=== PATIENT | female | born 1980 | race Caucasian/White ===

== ENCOUNTER 2018-01-13 10:50 | Emergency (ER) | payer OTHER, SELFPAY ==
[~2018-01-13] VITALS: Ht 177.8 cm; Wt 96.5 kg
[2018-01-13 12:25] LABS: BASOPHILS # (AUTO) 0.03 x10^3/uL (0-0.1); BASOPHILS % (AUTO) 0 % (0-1); EOSINOPHILS # (AUTO) 0.06 x10^3/uL (0-0.4); EOSINOPHILS % (AUTO) 1 % (1-7); LYMPHOCYTES # (AUTO) 2.03 x10^3/uL (1-3.4); LYMPHOCYTES % (AUTO) 30 % (22-44); MD NO; MEAN CORPUSCULAR HEMOGLOBIN 29.4 pg (27.0-34.8); MEAN CORPUSCULAR VOLUME 86.6 fL (80-100); MEAN PLATELET VOLUME 8.8 fL (7.4-10.4); MONOCYTES # (AUTO) 0.41 x10^3/uL (0.2-0.8); MONOCYTES % (AUTO) 6 % (2-9); NEUTROPHILS # (AUTO) 4.19 x10^3/uL (1.8-6.8); NEUTROPHILS % (AUTO) 62 % (42-75); PLATELET COUNT 337 x10^3/uL (130-400); RED BLOOD COUNT 4.84 x10^6/uL (3.82-5.3); RED CELL DISTRIBUTION WIDTH 13.7 % (9.6-15.2)
[2018-01-13 12:35] LABS: ALBUMIN 3.7 g/dL (3.4-5.0); ANION GAP 7 mmol/L (5-15); CALCIUM 8.2 mg/dL (8.5-10.1); CHLORIDE 108 mmol/L (98-107)
[2018-01-13 12:41] LABS: ALANINE AMINOTRANSFERASE 11 U/L (12-78); ALKALINE PHOSPHATASE 41 U/L (45-117); BILIRUBIN,TOTAL 0.4 mg/dL (0.2-1.0); CREATININE 0.86 mg/dL (0.55-1.02)
[2018-01-13 14:01] VITALS: BP 146/98
== END 2018-01-13 14:03 | disposition home or self-care (01) ==
LOC: ED 13:12
DX: N92.1 Excessive and frequent menstruation with irregular cycle (principal); N92.0 Excessive and frequent menstruation with regular cycle
CPT/HCPCS: 36415; 76830; 80053; 84702; 85025; 99285

== ENCOUNTER → 2018-02-28 | Outpatient (CLI) | payer OTHER ==
[~2018-02-28] MED LIST: DIPH-526 PO; OMEP-110 PO
[2018-02-28 12:00] LABS: BASOPHILS # (AUTO) 0.03 x10^3/uL (0-0.1); BASOPHILS % (AUTO) 0 % (0-1); EOSINOPHILS # (AUTO) 0.03 x10^3/uL (0-0.4); EOSINOPHILS % (AUTO) 1 % (1-7); LYMPHOCYTES % (AUTO) 32 % (22-44); MD NO; MEAN CORPUSCULAR HEMOGLOBIN 28.9 pg (27.0-34.8); MEAN CORPUSCULAR HGB CONC 33.4 g/dL (32.4-35.8); MEAN CORPUSCULAR VOLUME 86.4 fL (80-100); MEAN PLATELET VOLUME 8.6 fL (7.4-10.4); MONOCYTES # (AUTO) 0.37 x10^3/uL (0.2-0.8); MONOCYTES % (AUTO) 6 % (2-9); NEUTROPHILS # (AUTO) 3.77 x10^3/uL (1.8-6.8); NEUTROPHILS % (AUTO) 61 % (42-75); PLATELET COUNT 339 x10^3/uL (130-400); RED BLOOD COUNT 5.14 x10^6/uL (3.82-5.3); RED CELL DISTRIBUTION WIDTH 13.9 % (9.6-15.2)
[2018-02-28 12:19] LABS: HCG UR SG 1.011 (1.003-1.030); MICROSCOPIC AUTO
[2018-02-28 12:27] LABS: CULTURE INDICATED? NO
== END ==
LOC: STAR 10:57
PROVIDERS: ATTEND Obstetrics & Gynecology
DX: Z01.818 Encounter for other preprocedural examination (principal)
CPT/HCPCS: 36415; 81001; 81025; 85025

== ENCOUNTER 2018-03-10 06:21 | Day surgery (SDC) | payer OTHER ==
[~2018-03-10] VITALS: Ht 177.8 cm; Wt 96.4 kg
[2018-03-10] MEDS ORDERED: LACTATED RINGERS 1,000 ML IV SCH (06:59)
[2018-03-10] MEDS ORDERED: ACETAMINOPHEN 500 MG TABLET PO ONE (07:00)
[2018-03-10] MEDS ORDERED: GABAPENTIN 300 MG CAPSULE PO ONE (07:00)
[2018-03-10] MEDS ORDERED: OxyconTIN ER 20 MG TAB.ER PO ONE (07:00)
[2018-03-10 07:01] VITALS: BP 145/87
[2018-03-10] MEDS ORDERED: LIDOCAINE-MPF 1%, 2ML ONE (07:12)
[2018-03-10] MEDS ORDERED: FAMOTIDINE 20 MG TABLET ONE (07:19)
[2018-03-10] MEDS ORDERED: FAMOTIDINE 20 MG TABLET PO ONE (07:30)
[2018-03-10] MEDS ORDERED: FENTANYL PF 250 MCG/5ML ONE (07:57)
[2018-03-10] MEDS ORDERED: MIDAZOLAM 1 MG/ML, 2ML ONE (07:57)
[2018-03-10 08:01] LABS: HCG UR SG 1.011 (1.003-1.030)
[2018-03-10] MEDS ORDERED: EPINEPHRINE 1 MG/ML, 1ML ONE (08:20)
[2018-03-10] MEDS ORDERED: BUPIVACAINE 0.25% ONE (08:20)
[2018-03-10] MEDS ORDERED: SUCCINYLCHOLINE 20 MG/ML, 10ML ONE (08:34)
[2018-03-10] MEDS ORDERED: LIDOCAINE 4%, 4 ML SYR/CANN TP ONE (08:34)
[2018-03-10] MEDS ORDERED: ROCURONIUM 10 MG/ML,10ML ONE (08:34)
[2018-03-10] MEDS ORDERED: PROPOFOL 10 MG/ML, 20ML ONE (08:34)
[2018-03-10] MEDS ORDERED: CEFAZOLIN 1,000 MG ONE (08:34)
[2018-03-10] MEDS ORDERED: DEXAMETHASONE 4 MG/ML, 1ML ONE (08:34)
[2018-03-10] MEDS ORDERED: ONDANSETRON 2MG/ML, 2ML ONE (08:34)
[2018-03-10] MEDS ORDERED: MEPERIDINE/PF 25MG/0.5ML IVPush PRN (09:00)
[2018-03-10] MEDS ORDERED: morphine SULFATE 10 MG/ML, 1ML IV PRN (09:00)
[2018-03-10] MEDS ORDERED: ONDANSETRON 2MG/ML, 2ML IVPush PRN (09:00)
[2018-03-10] MEDS ORDERED: OXYcodone 5 MG/5 ML ORAL.SOL UDC PO PRN (09:00)
[2018-03-10] MEDS ORDERED: PROMETHAZINE 25 MG/ML, 1ML IV PRN (09:00)
[2018-03-10] MEDS ORDERED: FENTANYL PF 100 MCG/2ML IV PRN (09:00)
[2018-03-10] MEDS ORDERED: FENTANYL PF 100 MCG/2ML ONE (10:18)
== END 2018-03-10 13:40 ==
LOC: OUT 06:21
PROVIDERS: ATTEND Obstetrics & Gynecology
DX: Z30.2 Encounter for sterilization (principal); N83.8 Other noninflammatory disorders of ovary, fallopian tube and broad ligament
CPT/HCPCS: 58670; 81025; 88302; J0171; J0330; J0690; J1100; J2250; J2405; J2704; J3010; J3490; J7120

== ENCOUNTER 2018-10-07 09:27 | Emergency (ER) | payer OTHER ==
[~2018-10-07] VITALS: Ht 177.8 cm; Wt 95.0 kg
[2018-10-07] MEDS ORDERED: ALPR0.5T10 SL (10:09)
[2018-10-07 11:18] LABS: BASOPHILS # (AUTO) 0.04 x10^3/uL (0-0.1); BASOPHILS % (AUTO) 1 % (0-1); EOSINOPHILS # (AUTO) 0.07 x10^3/uL (0-0.4); EOSINOPHILS % (AUTO) 1 % (1-7); LYMPHOCYTES # (AUTO) 1.33 x10^3/uL (1-3.4); LYMPHOCYTES % (AUTO) 15 % (22-44); MD NO; MEAN CORPUSCULAR HEMOGLOBIN 28.6 pg (27.0-34.8); MEAN CORPUSCULAR HGB CONC 32.8 g/dL (32.4-35.8); MEAN CORPUSCULAR VOLUME 87.2 fL (80-100); MEAN PLATELET VOLUME 8.6 fL (7.4-10.4); MONOCYTES # (AUTO) 0.54 x10^3/uL (0.2-0.8); MONOCYTES % (AUTO) 6 % (2-9); NEUTROPHILS # (AUTO) 6.94 x10^3/uL (1.8-6.8); NEUTROPHILS % (AUTO) 78 % (42-75); PLATELET COUNT 287 x10^3/uL (130-400); RED BLOOD COUNT 4.91 x10^6/uL (3.82-5.3); RED CELL DISTRIBUTION WIDTH 14.2 % (9.6-15.2)
[2018-10-07 11:21] LABS: ALANINE AMINOTRANSFERASE 17 U/L (12-78); ALBUMIN 3.5 g/dL (3.4-5.0); ANION GAP 7 mmol/L (5-15); CALCIUM 8.1 mg/dL (8.5-10.1); CHLORIDE 108 mmol/L (98-107)
[2018-10-07 11:23] LABS: ALKALINE PHOSPHATASE 43 U/L (45-117); BILIRUBIN,TOTAL 0.5 mg/dL (0.2-1.0)
[2018-10-07 12:54] VITALS: BP 129/85
[2018-10-07] MEDS ORDERED: MAALOX/HYOSCYAMINE/LIDOCAINE 45 ML BTL ONE (12:57)
[2018-10-07] MEDS ORDERED: MAALOX/HYOSCYAMINE/LIDOCAINE 45 ML BTL PO ONE (13:00)
== END 2018-10-07 12:55 | disposition home or self-care (01) ==
LOC: ED 11:31
DX: K21.9 Gastro-esophageal reflux disease without esophagitis (principal); R13.10 Dysphagia, unspecified
CPT/HCPCS: 36415; 74220; 80053; 83690; 85025; 86677; 99284